=== PATIENT | female | born 1985 | race Caucasian/White ===

== ENCOUNTER 2017-02-14 18:47 | Emergency (ER) | payer MEDICAID ==
[2017-02-15 02:58] VITALS: BP 112/72
== END 2017-02-15 02:59 | disposition home or self-care (01) ==
LOC: ED 18:47
DX: N30.90 Cystitis, unspecified without hematuria (principal); Z88.5 Allergy status to narcotic agent
CPT/HCPCS: Q0092

== ENCOUNTER 2018-07-23 13:13 | Emergency (ER) | payer MEDICAID ==
[~2018-07-23] VITALS: Ht 165.1 cm; Wt 94.3 kg
[2018-07-23 13:28] VITALS: Ht 165.1 cm; Wt 94.3 kg
[2018-07-23 15:09] VITALS: BP 132/80
== END 2018-07-23 15:09 | disposition home or self-care (01) ==
LOC: ED 13:13
DX: H66.92 Otitis media, unspecified, left ear (principal); H60.92 Unspecified otitis externa, left ear; Z88.5 Allergy status to narcotic agent
CPT/HCPCS: J1885

== ENCOUNTER 2019-03-25 10:19 | Emergency (ER) | payer OTHER ==
[~2019-03-25] VITALS: Ht 165.1 cm; Wt 90.7 kg
[2019-03-25 10:22] VITALS: Ht 165.1 cm; Wt 90.7 kg
[2019-03-25 12:05] LABS: BASOPHIL % 0.7 % (0-2); PLATELET COUNT 303 x10^3mcL (130-400); RED CELL DISTRIBUTION WIDTH 15.1 % (11.5-14.5)
[2019-03-25 12:57] LABS: ALBUMIN 3.5 g/dL (3.4-5.0); ALKALINE PHOSPHATASE 62 U/L (46-116); ALT/SGPT 18 U/L (14-59); AMYLASE 50 U/L (25-115); AST/SGOT 9 U/L (15-37); BILIRUBIN TOTAL 0.3 mg/dL (0.20-1.00); CALCIUM 8.6 mg/dL (8.5-10.1); CARBON DIOXIDE 26.2 mmol/L (21-32); CHLORIDE SERUM 106 mmol/L (98-107); CREATININE SERUM 0.7 mg/dL (0.6-1.0); GFR1 > 60 mL/min; GLUCOSE SERUM 133 mg/dL (74-106); LIPASE 179 IU/L (73-393); POTASSIUM SERUM 3.4 mmol/L (3.5-5.1); SODIUM SERUM 143 mmol/L (136-145); TOTAL PROTEIN, SERUM 7.5 g/dL (6.4-8.2)
[2019-03-25 16:25] VITALS: BP 109/54
== END 2019-03-25 16:25 | disposition home or self-care (01) ==
LOC: ED 10:19
PROVIDERS: Emergency Medicine
DX: R10.817 Generalized abdominal tenderness (principal); R30.0 Dysuria; R11.0 Nausea; Z88.5 Allergy status to narcotic agent; Z90.49 Acquired absence of other specified parts of digestive tract; Z87.442 Personal history of urinary calculi
CPT/HCPCS: J1885; J7030; Q0162